=== PATIENT | male | born 1965 | race Caucasian/White ===

== ENCOUNTER 2022-07-18 11:38 | Emergency (ER) | payer OTHER, SELFPAY ==
[2022-07-18 11:48] VITALS: BP 123/73; PULSE 62; RESP 20; TEMP 37.3; O2SAT 100
--- NOTE | 2022-07-18 12:55 | ED.URI ---
HPI - URI/Sore Throat General Chief Complaint: Upper Respiratory Infection Stated Complaint: Sore Throat Time Seen by Provider: 07/18/22 12:50 Source: patient, RN notes reviewed and old records reviewed Mode of arrival: ambulatory Limitations: no limitations History of Present Illness HPI Narrative: 57 year old male presents to [facility] care with complaints of sore throat for 3 week duration with hoarseness noted and right ear pain.. Patient reports tobacco use of 1 pack per day for many years. Patient has not taken any OTC medications for his complaints. Patient denies any known ill contacts. MD elicited complaint: sore throat Pertinent past history: other (tobacco abuse) Onset (ago): week(s) (3) Pain scale (0-10): 3 Able to tolerate fluids by mouth: Yes Treatments prior to arrival: none Related Data Allergies Allergy/AdvReac Type Severity Reaction Status Date / Time No Known Allergies Allergy Verified 07/18/22 11:52 Review of Systems Review of Systems: CONSTITUTIONAL: Denies malaise, chills, sweats, or fever. EYES: Denies visual changes, redness, or discharge. ENT: Reports rhinorrhea, congestion, no sinus pain, right otalgia, reports sore throat and hoarseness.. CARDIOVASCULAR: Denies chest pain, palpitations, or edema. RESPIRATORY: Reports no cough.? Denies dyspnea. GASTROINTESTINAL: Denies abdominal pain, nausea, vomiting, diarrhea SKIN: Denies rash or itching. MUSCULOSKELETAL: Denies myalgia. NEUROLOGIC: Denies headache. All systems reviewed & are unremarkable except as noted in HPI and below PMFSH Social History Social History (Updated 07/20/22 @ 10:33 by Valerie Nichole NP) Smoking packs per day: 1 Smoking cigarettes per day: 20.0 Smoking status: Current every day smoker Tobacco type: cigarettes Alcohol intake: unknown Substance use type: does not use Gender identity (if verbalized by the patient): Male Comments At time of signature, agree with nursing past medical, surgical, social and family history. There is no relevant family history pertinent to the presenting complaint Exam Narrative: GENERAL: Well-appearing, well-nourished, and in no acute distress. HEAD: Normocephalic EYES: PERRLA, conjunctivae clear ENT: Nares clear, turbinates edematous and erythematous, clear discharge. Mucous membranes moist. TM pearly ca with dull light reflex bilaterally; no tragal tenderness. Oropharynx erythematous without lesions. Tonsils mildly enlarged and without exudate, no drooling,positive for hoarseness, no trismus, uvula midline.some post nasal discharge NECK: Supple. No lymphadenopathy CHEST: Clear to auscultation, breath sounds equal. No wheezing, rhonchi, rales, or stridor. No respiratory distress, speaks in full sentences.SAO2 100% on room air HEART: Regular rate and rhythm. No murmur heard. SKIN: Warm, dry, no rash. NEURO: Alert and oriented x3. PSYCH: Normal mood and affect Course Course Emergency Course: Patient is aware of diagnosis, understands and agrees to treatment plan.? Anticipatory guidance given.? Patient agrees to follow-up as directed and is aware of reasons to seek care at the emergency department. Portions of this record may have been created with voice recognition software Level of Care: Express Care Visit Vital Signs Vital signs: Vital Signs Temperature 37.3 C 07/18/22 11:48 Pulse Rate 62 07/18/22 11:48 Respiratory Rate 20 07/18/22 11:48 Blood Pressure 123/73 07/18/22 11:48 Pulse Oximetry 100 07/18/22 11:48 Oxygen Delivery Room Air 07/18/22 11:48 Temperature 37.3 C 07/18/22 11:48 Pulse Rate 62 07/18/22 11:48 Respiratory Rate 20 07/18/22 11:48 Blood Pressure 123/73 07/18/22 11:48 Pulse Oximetry 100 07/18/22 11:48 Oxygen Delivery Room Air 07/18/22 11:48 Reviewed MDM - URI/Sore Throat MDM Narrative Medical decision making narrative: Differential diagnosis considered: Quach virus, strep p
== END 2022-07-18 13:11 | disposition home or self-care (01) ==
PROVIDERS: Emergency Provider Registered Nurse; PCP Emergency Medicine
DX: J02.9 Acute pharyngitis, unspecified (principal); F17.210 Nicotine dependence, cigarettes, uncomplicated
CPT/HCPCS: 87081; 87880; 99213; G0463